=== PATIENT | male | born 1965 | race Caucasian/White ===

== ENCOUNTER → 2021-10-11 | Outpatient (CLI) | payer MEDICAID ==
--- NOTE | 2021-10-12 07:40 | ECHOF ---
Referral Reason:Z13.220 SCREENING FOR LIPOID DISORDER MEASUREMENTS -------- HEIGHT: 175.3 cm WEIGHT: 97.5 kg BP: RVIDd: 3.5 cm (< 3.3) IVSd: 1.3 cm (0.6 - 1.1) LVIDd: 3.8 cm (3.9 - 5.3) LVPWd: 1.5 cm (0.6 - 1.1) IVSs: 1.9 cm LVIDs: 2.0 cm LVPWs: 1.8 cm LA Diam: 3.7 cm (2.7 - 3.8) LAESV Index (A-L): 30.09 ml/m Ao Diam: 2.7 cm (2.0 - 3.7) AV Cusp: 1.8 cm (1.5 - 2.6) LA Diam: 3.5 cm (2.7 - 3.8) MV EXCURSION: 14.703 mm (> 18.000) MV EF SLOPE: 52 mm/s (70 - 150) EPSS: 0.3 cm MV E Vince: 0.81 m/s MV DecT: 305 ms MV A Vince: 1.08 m/s MV E/A Ratio: 0.75 RAP: 5.00 mmHg RVSP: 30.72 mmHg FINDINGS -------- Sinus rhythm. This was a technically adequate study. The left ventricular size is normal. There is mild concentric left ventricular hypertrophy. Overa ll left ventricular systolic function is normal with, an EF between 55 - 60 %. The diastolic fillin g pattern is normal for the age of the patient 10.52. The right ventricle is mildly enlarged. LA is midly dilated 29-33ml/m2. The right atrial size is normal. Interatrial and interventricular septum intact. The aortic valve is trileaflet, and appears structurally normal. No aortic stenosis or regurgitation. The mitral valve is normal. There is trace mitral regurgitation. The tricuspid valve appears structurally normal. Mild tricuspid regurgitation present. Right vent ricular systolic pressure is normal at < 35 mmHg. The right ventricular systolic pressure, as measu red by Doppler, is 30.72mmHg. Trace/mild (physiologic) pulmonic regurgitation. The aortic root size is normal. IVC Not well visulized. There is no pericardial effusion. CONCLUSIONS -------- 1. There is mild concentric left ventricular hypertrophy. 2. Overall left ventricular systolic function is normal with, an EF between 55 - 60 %. 3. The diastolic filling pattern is normal for the age of the patient 10.52 4. The right ventricle is mildly enlarged. 5. LA is midly dilated 29-33ml/m2. 6. The aortic valve is trileaflet, and appears structurally normal. No aortic stenosis or regurgitati on. 7. There is trace mitral regurgitation. 8. Mild tricuspid regurgitation present. 9. Trace/mild (physiologic) pulmonic regurgitation. NUCLEAR CHEMISTRY TECHNICIAN: Geri Velasquez RDCS
== END | disposition home or self-care (01) ==
LOC: RADECHMAIN 14:48
PROVIDERS: ATTEND Family Medicine
DX: I08.1 Rheumatic disorders of both mitral and tricuspid valves (principal)
CPT/HCPCS: 93306

== ENCOUNTER 2021-11-27 09:00 | Day surgery (SDC) | payer MEDICAID ==
[2021-11-23 10:37] VITALS: BMI 32.5
[~2021-11-27 09:00] MED LIST: LACTATED RINGERS 1,000 ML IV SCH
[2021-11-27 09:36] VITALS: TEMP 97.6
[2021-11-27] MEDS ORDERED: LIDOCAINE 1% (10MG/ML) FOR IV START INTRADERMA ONE (09:50)
[2021-11-27] MEDS ORDERED: PROPOFOL 10 MG/ML 20 ML VIAL IV ONE (10:20)
--- NOTE | 2021-11-27 10:40 | P.PCN ---
Date of Procedure: 11/27/21 Procedure(s) Performed: BRIEF HISTORY: Patient is a [56 year-old pleasant 8 male scheduled for an elective colonoscopy as a part of screening for colorectal neoplasia. PROCEDURE PERFORMED: Colonoscopy with snare polypectomy. PREOPERATIVE DIAGNOSIS: Screening for colon cancer. IV sedation per Anesthesia. PROCEDURE: After informed consent was obtained, the patient, was brought into the endoscopy unit. IV sedation was administered by Anesthesia under continuous monitoring. Digital rectal examination was normal. Initially the Olympus CF-160 flexible video colonoscope was then inserted in the rectum, gradually advanced into the cecum without any difficulty. Careful examination was performed as the scope was gradually being withdrawn. Ileocecal valve and the appendiceal orifice were visualized and appeared normal. Prep was excellent. Mucosa of the cecum, ascending colon, appeared normal. In the transverse colon there was a 3 mm an 8 mm polyp that was removed by snare polypectomy. Rest of the transverse colon, descending colon, appeared normal in the sigmoid colon there was a 5 mm polyp removed by snare polypectomy. sigmoid colon, and rectum appeared normal. Scattered sigmoid diverticula seen. Retroflexion was performed in the rectum and no lesions were seen. The patient tolerated the procedure well. IMPRESSION: 3 mm and 8 mm transverse colon polyp status post polypectomy 5 mm sigmoid: Polyp status post polypectomy Scattered sigmoid diverticulosis RECOMMENDATIONS: Findings of this examination were discussed with the patient as well as his family. He was advised to follow with the biopsy results. If the biopsy results adenoma he can have a repeat colonoscopy in 5 years..
[2021-11-27 11:10] VITALS: BP 128/86; PULSE 60; RESP 16
== END 2021-11-27 11:27 | disposition home or self-care (01) ==
LOC: ORWHC2ENDO 09:00
PROVIDERS: ATTEND Internal Medicine Gastroenterology
DX: Z12.11 Encounter for screening for malignant neoplasm of colon (principal); K57.30 Diverticulosis of large intestine without perforation or abscess without bleeding; D12.3 Benign neoplasm of transverse colon; D12.5 Benign neoplasm of sigmoid colon
CPT/HCPCS: 45385; 88305; J2704

== ENCOUNTER → 2022-09-13 | Outpatient (CLI) | payer MEDICAID ==
--- NOTE | 2022-09-15 13:48 | MR ---
EXAMINATION TYPE: MR knee RT wo con DATE OF EXAM: 09/13/2022 COMPARISON: Outside reading x-ray September 04, 2022 HISTORY: RT knee posterior pain and swelling x 3 months TECHNIQUE: Multiplanar, multisequence images of the knee is performed without IV contrast. FINDINGS: MEDIAL MENISCUS: Horizontal increased signal posterior horn extends to inferior articular surface cor onal image 24. LATERAL MENISCUS: Anterior and posterior horns are intact without tear. CRUCIATE LIGAMENTS: The posterior cruciate ligament is intact and unremarkable. Inferior cruciate lig ament shows increased signal at mid portion level. Slight discontinuity or waving pattern on sagittal images COLLATERAL LIGAMENTS: The medial collateral ligament and lateral collateral ligament complex are inta ct. Fluid signal surrounds the medial collateral ligament. EXTENSOR MECHANISM: Visualized quadriceps and patellar tendons are intact. EFFUSION: Moderate size suprapatellar joint effusion. POPLITEAL CYST: Moderate to large size popliteal/alvarado cyst sagittal image 8 with ill-defined fluid e xtending inferiorly. TRICOMPARTMENT SPACES: Mild tricompartment joint space loss. No significant spurring. CARTILAGE: Tricompartment articular cartilage is maintained. BONE MARROW SIGNAL: No focal abnormal marrow signal is appreciated. OTHER: Increased fluid signal superficial infrapatellar subcutaneous tissue. IMPRESSION: 1. Subtle horizontal tear posterior horn medial meniscus. 2. At least partial tearing of the anterior cruciate ligament. 3. Mild MCL sprain injury. 4. Moderate size suprapatellar joint effusion. 5. Moderate to large-size leaking Alvarado's cyst 6. Focal mild/moderate superficial infrapatellar bursitis.
== END | disposition home or self-care (01) ==
LOC: RADMRIMAIN 19:47
PROVIDERS: ATTEND Orthopaedic Surgery
DX: S83.241A Other tear of medial meniscus, current injury, right knee, initial encounter (principal); S83.411A Sprain of medial collateral ligament of right knee, initial encounter; M70.51 Other bursitis of knee, right knee; M25.461 Effusion, right knee